=== PATIENT | male | born 1930 | race African-American/Black ===

== ENCOUNTER 2016-10-23 05:29 | Emergency (ER) | payer MEDICARE, OTHER ==
[~2016-10-23] VITALS: Ht 160 cm; Wt 59.0 kg
[~2016-10-23 05:29] MED LIST: ASPIRIN-LOW81 MG ORAL; AZITHROMYCIN250 MG ORAL; BENAZEPRIL HCL10 MG ORAL; CLEAR EYES COMP15 ML BOTH EYES; COLACE100 MG ORAL; COREG6.25 MG ORAL; CYMBALTA30 MG ORAL; DOXAZOSIN MESYLA1 MG ORAL; DOXAZOSIN MESYLA2 MG ORAL; FUROSEMIDE20 M1 ORAL; MIRALAX17 G2 ORAL; NEURONTIN300 MG ORAL; NEURONTIN300 MG PO; NORCO 5-325 TA1 EACH ORAL; NORVASC10 MG ORAL; PROTONIX40 MG ORAL; ROBITUSSIN100 MG/52 ORAL; TENORMIN25 MG ORAL; VASOTEC20 MG ORAL; ZANTAC150 MG ORAL
[2016-10-23 05:40] VITALS: BP 150/76
--- NOTE | 2016-10-23 06:08 | Emergency Room Report ---
History of Present Illness General Chief Complaint: Pain Source: Patient Present Illness HPI Patient is a 86-year-old male presented after increased right lower extremity pain. Patient gradual onset of symptoms. The patient reported having no recent trauma. He stated he had increased pain in his groin as well as to his right lower extremity. Patient prior history of hernia repair. He stated in the past he's had episodes with blood clot Allergies: Coded Allergies: IODINE (Verified Allergy, Severe, swollen face, 06/23/13) SULFA (SULFONAMIDE ANTIBIOTICS) (Verified Allergy, Severe, swelling of face, 06/23/13) Patient History Past Medical History: see triage record Reviewed Nursing Documentation: PMH: Agreed, PSxH: Agreed Nursing Documentation-PMH Hx Cardiac Problems: Yes Hx Hypertension: Yes Hx Cancer: No Hx Gastrointestinal Problems: Yes Hx Neurological Problems: Yes Hx Peripheral Neuropathy: Yes Review of Systems All Other Systems: negative except mentioned in HPI Physical Exam Vital Signs Date Time Temp Pulse Resp B/P Pulse Ox O2 Delivery O2 Flow Rate FiO2 10/23/16 05:32 98.1 65 16 162/74 100 Room Air Sp02 EP Interpretation: reviewed, normal General Appearance: normal inspection, well appearing, no apparent distress, alert, GCS 15 Head: atraumatic ENT: normal ENT inspection, hearing grossly normal, normal voice Neck: normal inspection, full range of motion, supple, no bony tend Respiratory: normal inspection, lungs clear, normal breath sounds, no respiratory distress, no retraction, no wheezing Cardiovascular #1: regular rate, rhythm, no edema Gastrointestinal: normal inspection, normal bowel sounds, non tender, soft, no guarding, no hernia Genitourinary: no CVA tenderness, penis normal - uncircumcised male, scrotum normal Musculoskeletal: normal inspection, back normal, normal range of motion Neurologic: normal inspection, alert, oriented x3, responsive, cardiovascular operating room nurse III-XII nml as tested, speech normal Psychiatric: normal inspection, judgement/insight normal, mood/affect normal Skin: normal inspection, normal color, no rash Medical Decision Making Diagnostic Impression: Primary Impression: Hypertension Additional Impression: Knee pain, right ER Course Patient presented for lower extremity pain. Differential diagnosis included but was not limited to fracture, contusion, vascular insufficiency, aortic aneurysm , cellulitis.Because of complexity of patient's case laboratory testing and imaging studies were ordered. Duplex ultrasound of the right lower extremity was ordered.Laboratory testing was ordered the patient's prior history of using diuretics.Laboratory testing was initially unremarkable. The DVT ultrasound showed no evident DVT. Patient was noted to have no evidence of inguinal hernia or torsion. The patient had no testicular swelling. Urinalysis showed no evidence of infection. The patient was given prescription for some medication for pain. He is advised followup with his primary care physician for further evaluation and recheck. Labs Test 10/23/16 06:30 10/23/16 06:50 White Blood Count 5.7 K/UL (4.8-10.8) Red Blood Count 4.31 M/UL (4.70-6.10) Hemoglobin 12.3 G/DL (14.2-18.0) Hematocrit 37.8 % (42.0-52.0) Mean Corpuscular Volume 88 FL (80-99) Mean Corpuscular Hemoglobin 28.5 PG (27.0-31.0) Mean Corpuscular Hemoglobin Concent 32.5 G/DL (32.0-36.0) Red Cell Distribution Width 14.7 % (11.6-14.8) Platelet Count 149 K/UL (150-450) Mean Platelet Volume 9.2 FL (6.5-10.1) Neutrophils (%) (Auto) 62.0 % (45.0-75.0) Lymphocytes (%) (Auto) 21.7 % (20.0-45.0) Monocytes (%) (Auto) 10.1 % (1.0-10.0) Eosinophils (%) (Auto) 4.1 % (0.0-3.0) Basophils (%) (Auto) 2.2 % (0.0-2.0) Prothrombin Time 10.4 SEC (9.30-11.50) Prothromb Time International Ratio 1.0 (0.9-1.1) Activated Partial Thromboplast Time 28 SEC (23-33) Sodium Level 141 mEQ/L (135-145) Potassium Level 3.6 mEQ/L (3.4-4.9) Chloride Level 98 mEQ/L (98-107) Carbon Dioxide Level 29 mEQ/L (20-30) Anion Gap 14 (5-15) Blood Urea Nitrogen 22 mg/dL (7-23) Creatinine 1.1 mg/dL (0.7-1.2) Estimat Glomerular Filtration Rate mL/min (>60) Glucose Level 97 mg/dL (74-106) Calcium Level 10.1 mg/dL (8.6-10.2) Total Bilirubin 0.4 mg/dL (0.0-1.2) Aspartate Amino Transf (AST/SGOT) 24 U/L (5-40) Alanine Aminotransferase (ALT/SGPT) 18 U/L (3-41) Alkaline Phosphatase 102 U/L (40-129) Troponin I < 0.30 ng/mL (<=0.30) Total Protein 7.2 g/dL (6.6-8.7) Albumin 4.5 g/dL (3.5-5.2) Globulin 2.7 g/dL Albumin/Globulin Ratio 1.6 (1.0-2.7) Last Vital Signs Date Time Temp Pulse Resp B/P Pulse Ox O2 Delivery O2 Flow Rate FiO2 10/23/16 05:40 98.1 85 16 150/76 100 Room Air Status: improved Disposition: HOME, SELF-CARE Condition: Stable Scripts Tramadol Hcl* (ULTRAM*) 50 Mg Tablet 50 MG ORAL Q6H Y for For Pain, #15 TAB 0 Refills Prov: Daniel Rogers 10/23/16 Daniel Rogers Oct 23, 2016 06:08
[2016-10-23] MEDS ORDERED: PRILOSEC OTC20 MG ORAL (06:27)
[2016-10-23 06:38] LABS: BASOPHILS % (AUTO) 2.2 % (0.0-2.0); EOSINOPHILS % (AUTO) 4.1 % (0.0-3.0); LYMPHOCYTES % (AUTO) 21.7 % (20.0-45.0); MEAN CORPUSCULAR HEMOGLOBIN 28.5 PG (27.0-31.0); MEAN CORPUSCULAR HGB CONC 32.5 G/DL (32.0-36.0); MEAN CORPUSCULAR VOLUME 88 FL (80-99); MEAN PLATELET VOLUME 9.2 FL (6.5-10.1); MONOCYTES % (AUTO) 10.1 % (1.0-10.0); PLATELET COUNT 149 K/UL (150-450); RED BLOOD COUNT 4.31 M/UL (4.70-6.10); RED CELL DISTRIBUTION WIDTH 14.7 % (11.6-14.8); WHITE BLOOD COUNT 5.7 K/UL (4.8-10.8)
[2016-10-23 06:48] LABS: PROTHROMBIN TIME 10.4 SEC (9.30-11.50)
[2016-10-23 06:55] LABS: ALANINE AMINOTRANSFERASE 18 U/L (3-41); ALBUMIN/GLOBULIN RATIO 1.6 (1.0-2.7); ANION GAP 14 (5-15); ASPARTATE AMINO TRANSFERASE 24 U/L (5-40); CALCIUM 10.1 mg/dL (8.6-10.2); CARBON DIOXIDE 29 mEQ/L (20-30); CHLORIDE 98 mEQ/L (98-107); CREATININE 1.1 mg/dL (0.7-1.2); HEMOLYSIS 6; POTASSIUM 3.6 mEQ/L (3.4-4.9); SODIUM 141 mEQ/L (135-145); TOTAL PROTEIN 7.2 g/dL (6.6-8.7)
[2016-10-23 06:57] LABS: TROPONIN I < 0.30 ng/mL (<=0.30)
[2016-10-23 07:07] VITALS: BP 138/75
[2016-10-23 07:07] LABS: APPEARANCE,URINE CLEAR; KETONES,URINE NEGATIVE (NEGATIVE); LEUKOCYTE ESTERASE ,URINE NEGATIVE (NEGATIVE); NITRITE,URINE NEGATIVE (NEGATIVE); PH,URINE 8 (4.5-8.0); PROTEIN,URINE NEGATIVE (NEGATIVE); UROBILINOGEN,URINE NORMAL MG/DL (0.0-1.0)
[2016-10-23] MEDS ORDERED: TRAMADOL HCL50 MG ORAL (07:14)
[2016-10-23 07:40] VITALS: BP 160/72
--- NOTE | 2016-10-27 22:54 | Diagnostic Imaging Report ---
APPROVED REPORT CPT Code: 27620 Present Symptoms Lower Extremity Pain: Right RIGHT LEG: Venous imaging reveals a patent deep venous system. There is no evidence of thrombus within the femoral, popliteal or tibial segments. The greater saphenous vein is also within normal limits. Doppler indicates normal spontaneous flow within these segments.
== END 2016-10-23 07:42 | disposition home or self-care (01) ==
LOC: EMR 06:16
DX: I10 Essential (primary) hypertension (principal); Z88.2 Allergy status to sulfonamides
CPT/HCPCS: 36415; 80053; 81003; 84484; 85025; 85610; 85730; 93971; 99283